=== PATIENT | female | born 1995 | race Caucasian/White ===

== ENCOUNTER 2019-07-18 14:45 | Observation (INO) | payer OTHER ==
[~2019-07-18] VITALS: Ht 149.9 cm; Wt 61.2 kg
[2019-07-18] MEDS ORDERED: TERBUTALINE SULFATE 1MG/ML VIAL SUBCUT PRN (16:15)
[2019-07-18] MEDS ORDERED: LACTATED RINGERS 1,000 ML IV SCH (16:15)
[2019-07-18 16:53] LABS: CLARITY URINE TURBID (CLEAR); COLOR URINE DARK YELLOW (YELLOW); KETONES URINE NEGATIVE (NEGATIVE); LEUKOCYTE ESTERASE URINE TRACE (NEGATIVE); NITRITE URINE NEGATIVE (NEGATIVE); OCCULT BLOOD URINE NEGATIVE (NEGATIVE); PH URINE 7.5 (4.5-8.0); PROTEIN URINE TRACE (NEGATIVE); SPECIFIC GRAVITY URINE 1.024 (1.005-1.030)
[2019-07-18] MEDS ORDERED: PNV1TABL76 MT (17:38)
[2019-07-18] MEDS ORDERED: CEFAZOLIN 2,000 MG in DEXT 5% WATER 100 ML IV NR (17:45)
== END 2019-07-18 19:31 | disposition home or self-care (01) ==
LOC: 8 EST LDRP 14:45
PROVIDERS: ADMIT Obstetrics & Gynecology; ATTEND Obstetrics & Gynecology
DX: O26.893 Other specified pregnancy related conditions, third trimester (principal); R10.30 Lower abdominal pain, unspecified; Z3A.34 34 weeks gestation of pregnancy
CPT/HCPCS: 76805; 76818; 81003; 82731; 96372; 99281; G0378; J0690; J3105; J7060; 96361

== ENCOUNTER 2019-08-30 05:22 | Inpatient (IN) | payer OTHER ==
[~2019-08-30] VITALS: Ht 144.8 cm; Wt 63.5 kg
[~2019-08-30 05:22] MED LIST: PNV1TABL76 MT
[2019-08-30] MEDS ORDERED: METHYLERGONOVINE MALEATE 0.2 MG/ML IM PRN (06:45)
[2019-08-30] MEDS ORDERED: LIDOCAINE HCL 1% 20ML VIAL (Pyxis) INJ INFIL SCH (06:45)
[2019-08-30] MEDS ORDERED: BUTORPHANOL TARTRATE 2 MG/ML VIAL IV PRN ×2 (06:45→17:45)
[2019-08-30] MEDS ORDERED: DEXT 5%/LR + PITOCIN 20UNITS/L 1,000 ML IV SCH ×2 (07:09→17:28)
[2019-08-30] MEDS ORDERED: LACTATED RINGERS 1,000 ML IV SCH (07:10)
[2019-08-30 07:28] LABS: INR 0.9; PARTIAL THROMBOPLASTIN TIME 21.4 sec (23.4-31.0); PROTHROMBIN TIME 9.4 sec (9.6-11.0)
[2019-08-30 07:35] LABS: BASOPHILS % 0.4 % (0.0-2.0); EOSINOPHILS % 0.8 % (0.0-5.0); HEMATOCRIT. 39.8 % (36.0-48.0); HEMOGLOBIN. 13.9 g/dL (12.0-16.0); MEAN CORPUSCULAR HEMOGLOBIN 33.8 pg (28.0-32.0); MEAN CORPUSCULAR VOLUME 96.8 fL (81.0-99.0); MEAN PLATELET VOLUME 10.7 fl (7.4-10.4); MONOCYTES % 4.7 % (2.0-8.0); NEUTROPHILS % 65.1 % (40.0-76.0); PLATELET 163 x1000/uL (130-400); RED BLOOD CELL COUNT 4.11 mill/uL (4.2-5.4); RED CELL DISTRIBUTION WIDTH 13.1 % (11.6-14.6)
[2019-08-30 08:09] LABS: HEPATITIS B SURFACE ANTIGEN NEGATIVE
[2019-08-30] MEDS ORDERED: LIDOCAINE HCL 2%/EPINEPHRINE 1:100,000 20 ML VIAL INFIL ONE (10:12)
[2019-08-30] MEDS ORDERED: ROPIVACAINE HCL/PF EPIDURAL 200 ML EPI ONE (11:02)
[2019-08-30] MEDS ORDERED: FENTANYL CITRATE/PF 50MCG/ML 2ML VIAL ONE (14:18)
[2019-08-30] MEDS ORDERED: MORPHINE SULFATE/PF 1MG/ML 10ML AMP ONE (14:18)
[2019-08-30] MEDS ORDERED: CITRIC ACID/SODIUM CITRATE SOLN 30ML UDC PO NR (15:45)
[2019-08-30] MEDS ORDERED: CEFAZOLIN SODIUM 1000MG/VIAL ONE (16:24)
[2019-08-30] MEDS ORDERED: ONDANSETRON HCL 4MG/2ML INJ ONE (16:27)
[2019-08-30] MEDS ORDERED: OXYTOCIN 10 UNITS/ML 1ML ONE (16:38)
[2019-08-30] MEDS ORDERED: DIPHENHYDRAMINE 50MG/ML VIAL ONE (16:45)
[2019-08-30] MEDS ORDERED: ESMOLOL HCL 10MG/ML 10ML VIAL IV ONE (16:45)
[2019-08-30] MEDS ORDERED: KETOROLAC 60MG/2ML VIAL IM ONE (16:51)
[2019-08-30] MEDS ORDERED: IBUPROFEN 400MG TABLET PO PRN (17:30)
[2019-08-30] MEDS ORDERED: RHO(D) IMMUNE GLOBULIN 300 MCG/SYR IM PRN (17:30)
[2019-08-30] MEDS ORDERED: BISACODYL 10MG SUPP PR PRN (17:30)
[2019-08-30] MEDS ORDERED: KETOROLAC 30MG/ML VIAL IV PRN (17:30)
[2019-08-30] MEDS ORDERED: NALOXONE HCL 0.4 MG/ML 1ML VIAL IV PRN (17:45)
[2019-08-30] MEDS ORDERED: KETOROLAC 30MG/ML VIAL IV SCH (17:45)
[2019-08-30] MEDS ORDERED: DIPHENHYDRAMINE 50MG/ML VIAL IV PRN (17:45)
[2019-08-30 20:13] LABS: CLARITY URINE CLEAR (CLEAR); COLOR URINE YELLOW (YELLOW); KETONES URINE 1+ (NEGATIVE); LEUKOCYTE ESTERASE URINE NEGATIVE (NEGATIVE); NITRITE URINE NEGATIVE (NEGATIVE); OCCULT BLOOD URINE 2+ (NEGATIVE); PH URINE 8.5 (4.5-8.0); PROTEIN URINE NEGATIVE (NEGATIVE); SPECIFIC GRAVITY URINE 1.011 (1.005-1.030); UROBILINOGEN URINE 0.2 E.U./dL (0.2-1.0)
[2019-08-30 20:20] VITALS: BP 121/72
[2019-08-30 20:24] LABS: *AMPHETAMINES SCREEN URINE NEGATIVE (NEGATIVE); *BARBITURATES SCREEN URINE NEGATIVE (NEGATIVE)
[2019-08-30 20:25] LABS: *BENZODIAZEPINES SCREEN URINE NEGATIVE (NEGATIVE); *COCAINE SCREEN URINE NEGATIVE (NEGATIVE); METHADONE URINE SCREEN NEGATIVE (NEGATIVE); OPIATES URINE SCREEN NEGATIVE (NEGATIVE); PHENCYCLIDINE URINE SCREEN NEGATIVE (NEGATIVE)
[2019-08-30 20:26] LABS: CANNABINOID URINE SCREEN NEGATIVE (NEGATIVE)
[2019-08-30 20:45] VITALS: BP 118/70
[2019-08-30 21:15] VITALS: BP 120/74
[2019-08-31] VITALS: BP 123/78
[2019-08-31 04:00] VITALS: BP 115/64
[2019-08-31 06:40] LABS: BASOPHILS % 0.2 % (0.0-2.0); EOSINOPHILS % 0.2 % (0.0-5.0); HEMATOCRIT. 33.6 % (36.0-48.0); HEMOGLOBIN. 11.7 g/dL (12.0-16.0); LYMPHOCYTES % 18.1 % (20.0-50.0); MEAN CORPUSCULAR VOLUME 97.5 fL (81.0-99.0); MEAN PLATELET VOLUME 9.9 fl (7.4-10.4); MONOCYTES % 6.2 % (2.0-8.0); NEUTROPHILS % 75.3 % (40.0-76.0); PLATELET 127 x1000/uL (130-400); RED BLOOD CELL COUNT 3.45 mill/uL (4.2-5.4)
[2019-08-31 08:00] VITALS: BP 92/48
[2019-08-31] MEDS ORDERED: TETANUS, DIPHTHERIA, PERTUSSIS VAC/PF 0.5ML (>7YR OLD) IM ONE (08:00)
[2019-08-31] MEDS: IBUPROFEN 800MG TABLET PO PRN ×2 (08:11→21:43)
[2019-08-31] MEDS ORDERED: INFLUENZA VIRUS VACCINE(AFLURIA) 0.5ML SYR IM ONE (10:00)
[2019-08-31 18:13] VITALS: BP 93/58
[2019-08-31 20:00] VITALS: BP 114/66
[2019-09-01 04:00] VITALS: BP 94/49
[2019-09-01 08:55] VITALS: BP 108/59
[2019-09-01 16:00] VITALS: BP 113/68
[2019-09-01] MEDS: IBUPROFEN 800MG TABLET PO PRN (17:03)
[2019-09-01 20:05] VITALS: BP 118/69
[2019-09-02 00:54] VITALS: BP 121/59
[2019-09-02 03:50] VITALS: BP 123/67
[2019-09-02] MEDS: IBUPROFEN 800MG TABLET PO PRN (04:03)
[2019-09-02 08:00] VITALS: BP 105/50
== END 2019-09-02 11:51 | disposition home or self-care (01) | DRG 540 ==
LOC: 8 EST LDRP 05:22 → OBSVTOIN 05:22 → 8 EST LDRP 09:37 → 8EST 20:20
PROVIDERS: ADMIT Obstetrics & Gynecology; ATTEND Obstetrics & Gynecology
PROC: 10D00Z1 Extraction of Products of Conception, Low, Open Approach (ICD-10-PCS; principal; 2019-08-30)
DX: O36.63X0 Maternal care for excessive fetal growth, third trimester, not applicable or unspecified (principal); O69.81X0 Labor and delivery complicated by cord around neck, without compression, not applicable or unspecified; Z37.0 Single live birth; Z3A.40 40 weeks gestation of pregnancy; Z82.49 Family history of ischemic heart disease and other diseases of the circulatory system
CPT/HCPCS: 36415; 76815; 80305; 81003; 85025; 86592; 86762; 86850; 86900; 87340; 88307; 99281; J0690; J1200; J1885; J2274; J2405; J2590; J2795; J3010; J3490; J7120